=== PATIENT | male | born 1965 | race Caucasian/White ===

== ENCOUNTER 2019-04-27 11:05 | Emergency (ER) | payer SELFPAY ==
[~2019-04-27] VITALS: Ht 170.2 cm; Wt 75.0 kg
[2019-04-27] MEDS ORDERED: OMEP10SU2 PO (11:19)
[2019-04-27] MEDS ORDERED: HYPERTENSION PO (11:19)
[2019-04-27] MEDS ORDERED: OMEP20 PO (11:28)
[2019-04-27] MEDS ORDERED: SODIUM CHLORIDE 0.9% 1,000 ML IV ONE (11:45)
[2019-04-27 11:52] VITALS: BP 129/101
== END 2019-04-27 12:38 | disposition home or self-care (01) ==
LOC: EMS 11:07
DX: R42 Dizziness and giddiness (principal); F10.10 Alcohol abuse, uncomplicated; I10 Essential (primary) hypertension; K21.9 Gastro-esophageal reflux disease without esophagitis; Z59.0 Homelessness; Y90.9 Presence of alcohol in blood, level not specified